=== PATIENT | female | born 1950 | race Caucasian/White ===

== ENCOUNTER → 2016-07-22 | Outpatient (CLI) | payer OTHER ==
[~2016-07-22] MED LIST: ASPCH81X PO; CLOZ100T PO; CYM30 PO; LAMO200T38 PO; LTD/40 PO
--- NOTE | 2016-07-22 17:13 | MAMMOGRAPHY REPORT ---
BILATERAL DIGITAL SCREENING MAMMOGRAM WITH CAD: 07/22/2016 CLINICAL HISTORY: Routine screening. Patient has no complaints. TECHNIQUE: Bilateral CC and MLO views were obtained. Current study was also evaluated with a Compute r Aided Detection (CAD) system. COMPARISON: Comparison is made to exams dated: 07/22/2015 mammogram, 07/19/2014 mammogram, 06/26/2013 jourdan mogram, 06/23/2012 mammogram, 06/22/2011 mammogram, and 06/03/2010 mammogram - [facility] BREAST COMPOSITION: The tissue of both breasts is extremely dense, which lowers the sensitivity of m ammography. FINDINGS: There is a possible cluster of microcalcifications in the lateral posterior left breast, a pproximate 3:00 axis, for which additional spot magnification views are recommended. There are other scattered benign round calcifications throughout the breasts. No other suspicious ma ss, architectural distortion or cluster of suspicious microcalcifications is seen. IMPRESSION: ACR BI-RADS CATEGORY 0: INCOMPLETE EVALUATION: NEED ADDITIONAL IMAGING EVALUATION The possible cluster of microcalcifications in the lateral, posterior left breast needs additional ev aluation. The patient will be called to schedule an appointment. Approximately 10% of breast cancers are not detected with mammography. A negative mammographic report should not delay biopsy if a clinically suggestive mass is present. Jennifer Reyes M.D. ay/:07/22/2016 15:16:45 Bus And Rail Operator: Qi IBRAHIM,R, M, [facility] letter sent: Addl Imaging 0 BI-RADS Code: ACR BI-RADS Category 0: Incomplete Evaluation: Need Additional Imaging Evaluation
== END | disposition home or self-care (01) ==
LOC: C.MAMM 13:57
PROVIDERS: ATTEND Family Medicine
DX: Z12.31 Encounter for screening mammogram for malignant neoplasm of breast (principal); R92.2 Inconclusive mammogram

== ENCOUNTER → 2016-07-29 | Outpatient (CLI) | payer OTHER ==
--- NOTE | 2016-07-29 16:39 | MAMMOGRAPHY REPORT ---
UNILATERAL LEFT DIGITAL DIAGNOSTIC MAMMOGRAM: 07/29/2016 CLINICAL HISTORY: Call back from screening mammography for a grouping of microcalcifications in the u pper outer posterior left breast. TECHNIQUE: Spot magnification left CC and ML views were obtained. COMPARISON: Comparison is made to exams dated: 07/22/2016 mammogram, 07/22/2015 mammogram, 07/19/2014 mamm ogram, 06/26/2013 mammogram, 06/23/2012 mammogram, and 06/22/2011 mammogram - [facility] . BREAST COMPOSITION: The tissue of the left breast is heterogeneously dense, which may obscure small masses. FINDINGS: There is a a 7 x 4 mm grouping of punctate microcalcifications in the upper outer posterio r left breast. When comparing back to all available prior mammograms, a grouping of microcalcificati ons has been present in this location dating back to at least 2008. Given slight differences in tech nique and equipment, these do not appear significantly changed but are thought to be slightly better visualized. There is no obvious associated mass or architectural distortion. There are other coarse benign calcifications scattered in the left breast. A short interval follow-up diagnostic mammogram with repeat spot magnification views is recommended to ensure stability in 6 months. IMPRESSION: ACR-BI-RADS CATEGORY 3: PROBABLY BENIGN There is a 7 x 4 mm grouping of punctate microcalcifications in the upper outer posterior left breast that does not appear significantly changed compared to prior full field views dating back to 2008. Given the slight increased conspicuity, a short interval follow-up diagnostic left mammogram includin g spot magnification views is recommended to ensure stability in 6 months. These results and recommendations were discussed with the patient at the time of the exam. She tenta tively scheduled a follow-up appointment prior to leaving our department. Approximately 10% of breast cancers are not detected with mammography. A negative mammographic report should not delay biopsy if a clinically suggestive mass is present. Jennifer Reyes M.D. ay/:07/29/2016 13:26:27 Scheduler Conveyor: Ledy Ramesh, [facility] letter sent: Follow Up Recommended 3 BI-RADS Code: ACR-BI-RADS Category 3: Probably Benign
== END | disposition home or self-care (01) ==
LOC: C.MAMM 12:47
PROVIDERS: ATTEND Family Medicine
DX: R92.0 Mammographic microcalcification found on diagnostic imaging of breast (principal)

== ENCOUNTER → 2017-02-10 | Outpatient (CLI) | payer OTHER ==
[~2017-02-10] MED LIST changes: +LAMO200T35 PO; -LAMO200T38 PO
--- NOTE | 2017-02-11 13:46 | MAMMOGRAPHY REPORT ---
UNILATERAL LEFT DIGITAL DIAGNOSTIC MAMMOGRAM TOMOSYNTHESIS WITH CAD AND TARGETED LEFT ULTRASOUND: CLINICAL HISTORY: 66-year-old woman presents for follow-up in the left breast of a probably benign gr ouping of punctate microcalcifications in the upper outer quadrant. TECHNIQUE: Left breast tomosynthesis in addition to standard 2D mammography was performed. Spot magn ification left CC and ML views were also obtained. Current study was also evaluated with a Computer Aided Detection (CAD) system. COMPARISON: Comparison is made to exams dated: 07/22/2016 mammogram, 07/29/2016 mammogram, 07/19/2014 jourdan mogram, 06/26/2013 mammogram, 06/23/2012 mammogram, and 06/22/2011 mammogram - [facility] BREAST COMPOSITION: The tissue of the left breast is heterogeneously dense, which may obscure small masses. FINDINGS: There are several benign coarse calcifications/rim calcifications scattered in the left adrian ast. There is a loose grouping of punctate microcalcifications in the upper outer middle to posterio r breast, best seen on the spot magnification views, which appears similar in number and configuratio n dating back to the spot magnification views obtained 07/29/2016, and also similar to prior full fie ld mammograms dating back to at least 06/22/2011. With 5 years of stability these are considered asim ign. However, there is a newly visualized circumscribed 4.8 mm mass in the lateral left breast for w kaiah further characterization with ultrasound was performed. Targeted ultrasound was performed in the lateral left breast. In the 1:00 axis, 4 cm from the nipple , a round circumscribed anechoic simple cyst with posterior acoustic enhancement is identified, measu ring 4.3 x 3.5 x 4.7 mm. This correlates with the newly visualized mammographic mass and is benign. IMPRESSION: ACR BI-RADS CATEGORY 2: BENIGN, TARGETED ULTRASOUND ACR BI-RADS CATEGORY 2: BENIGN 1. Stable grouping of punctate microcalcifications in the upper outer quadrant of the left breast wh ich appear similar on all available prior mammograms dating back to at least 2011, therefore consider ed benign. 2. A newly visualized 4.8 mm circumscribed mass in the lateral left breast seen mammographically cor responds to a benign anechoic simple cyst on ultrasound, identified in the 1:00 left breast, 4 cm fro m the nipple. 3. There is no mammographic or targeted sonographic evidence of malignancy in the left breast. Sav mmend return to annual screening mammography schedule, due in July 2017. Approximately 10% of breast cancers are not detected with mammography. A negative mammographic report should not delay biopsy if a clinically suggestive mass is present. Jennifer Reyes M.D. ay/:02/10/2017 13:40:52 Folder And Notcher: Sheila IBRAHIM(R)(M), [facility] letter sent: Normal 1/2 BI-RADS Code: ACR BI-RADS Category 2: Benign Ultrasound BI-RADS: ACR BI-RADS Category 2: Benign
== END | disposition home or self-care (01) ==
LOC: C.MAMM 12:36
PROVIDERS: ATTEND Family Medicine
DX: R92.0 Mammographic microcalcification found on diagnostic imaging of breast (principal); N63.20 Unspecified lump in the left breast, unspecified quadrant